=== PATIENT | male | born 1945 | race Caucasian/White ===

== ENCOUNTER 2022-08-16 18:13 | Inpatient (IN) | payer MEDICAID ==
[~2022-08-16] VITALS: Ht 177.8 cm; Wt 106.7 kg
[2022-08-16 19:01] LABS: BASOPHILS % 0.8 % (0.0-2.0); EOSINOPHILS % 0.7 % (0.0-5.0); HEMATOCRIT. 36.5 % (42.0-52.0); HEMOGLOBIN. 12.1 g/dL (14.0-18.0); LYMPHOCYTES % 50.2 % (20.0-50.0); MEAN CORPUSCULAR HEMOGLOBIN 28.7 pg (28.0-32.0); MEAN CORPUSCULAR VOLUME 86.8 fL (80.0-94.0); MEAN PLATELET VOLUME 8.9 fl (7.4-10.4); MONOCYTES % 7.6 % (2.0-8.0); NEUTROPHILS % 40.7 % (40.0-76.0); PLATELET 151 x1000/uL (130-400); RED BLOOD CELL COUNT 4.21 mill/uL (4.7-6.1); RED CELL DISTRIBUTION WIDTH 17.6 % (11.6-14.6)
[2022-08-16 19:06] LABS: CHLORIDE 108 mEq/L (98-107)
[2022-08-16 19:24] LABS: CLARITY URINE CLEAR (CLEAR); COLOR URINE YELLOW (YELLOW); KETONES URINE TRACE (NEGATIVE); LEUKOCYTE ESTERASE URINE NEGATIVE (NEGATIVE); NITRITE URINE NEGATIVE (NEGATIVE); OCCULT BLOOD URINE NEGATIVE (NEGATIVE); PH URINE 5.5 (4.5-8.0); PROTEIN URINE 1+ (NEGATIVE); SPECIFIC GRAVITY URINE 1.029 (1.005-1.030)
[2022-08-16 19:35] LABS: ETHANOL BLOOD 328 mg/dL
[2022-08-16 19:51] LABS: *AMPHETAMINES SCREEN URINE NEGATIVE (NEGATIVE); *BARBITURATES SCREEN URINE NEGATIVE (NEGATIVE); *BENZODIAZEPINES SCREEN URINE NEGATIVE (NEGATIVE); *COCAINE SCREEN URINE NEGATIVE (NEGATIVE); CANNABINOID URINE SCREEN NEGATIVE (NEGATIVE); METHADONE URINE SCREEN NEGATIVE (NEGATIVE); OPIATES URINE SCREEN NEGATIVE (NEGATIVE); PHENCYCLIDINE URINE SCREEN NEGATIVE (NEGATIVE)
[2022-08-17 03:58] VITALS: BP 138/91
[2022-08-17] MEDS ORDERED: NALOXONE HCL 0.4MG/ML VIAL IV PRN (07:00)
[2022-08-17] MEDS ORDERED: ONDANSETRON HCL 4MG/2ML INJ IV PRN (07:00)
[2022-08-17] MEDS ORDERED: HYDROCODONE/ACETAMINOPHEN 5/325MG TABLET PO PRN (07:00)
[2022-08-17] MEDS ORDERED: LORAZEPAM 0.5MG TABLET PO PRN (07:00)
[2022-08-17] MEDS ORDERED: DOCUSATE SODIUM 100MG CAPSULE PO PRN (07:00)
[2022-08-17] MEDS ORDERED: ACETAMINOPHEN 325MG TABLET PO PRN (07:00)
[2022-08-17] MEDS ORDERED: IPRATROPIUM/ALBUTEROL 0.5-3(2.5)MG/3ML NEB HHN PRN (07:00)
[2022-08-17] MEDS ORDERED: CLONIDINE 0.1MG TABLET PO PRN (07:00)
[2022-08-17] MEDS ORDERED: FOLIC ACID 1 MG, THIAMINE HCL 100 MG, MVI, ADULT NO.1 10 ML in DEXTROSE 5% WATER 1,000 ML IV ONE ×4 (09:00)
[2022-08-17 10:32] LABS: BASOPHILS % 0.9 % (0.0-2.0); EOSINOPHILS % 0.8 % (0.0-5.0); HEMATOCRIT. 38.8 % (42.0-52.0); HEMOGLOBIN. 13.1 g/dL (14.0-18.0); LYMPHOCYTES % 31.3 % (20.0-50.0); MEAN CORPUSCULAR HEMOGLOBIN 29.2 pg (28.0-32.0); MEAN CORPUSCULAR VOLUME 86.7 fL (80.0-94.0); MEAN PLATELET VOLUME 9.5 fl (7.4-10.4); MONOCYTES % 5.8 % (2.0-8.0); NEUTROPHILS % 61.2 % (40.0-76.0); PLATELET 172 x1000/uL (130-400); RED BLOOD CELL COUNT 4.48 mill/uL (4.7-6.1); RED CELL DISTRIBUTION WIDTH 18.1 % (11.6-14.6)
[2022-08-17 10:38] LABS: CHLORIDE 107 mEq/L (98-107)
[2022-08-17] MEDS: ACETAMINOPHEN 325MG TABLET PO PRN (11:10)
[2022-08-17 12:00] VITALS: BP 168/96
[2022-08-17] MEDS: METOPROLOL TARTRATE 50MG TABLET PO SCH ×2 (13:02→22:15)
[2022-08-17] MEDS: CHLORDIAZEPOXIDE 25MG CAPSULE PO SCH ×2 (13:25→22:15)
[2022-08-17 16:00] VITALS: BP 150/98
[2022-08-17 18:26] LABS: CREATINE KINASE 125 IU/L (39-308); CREATINE KINASE MB FRACTION 3.5 ng/mL (0.5-3.6); TOTAL IRON BINDING CAPACITY 313 ug/dL (250-450)
[2022-08-17 18:28] LABS: FERRITIN 38 ng/mL (22-322)
[2022-08-17 20:00] VITALS: BP 159/90
[2022-08-17] MEDS ORDERED: ENOXAPARIN 120MG/0.8ML SYR SUBCUT SCH (21:00)
[2022-08-18] VITALS: BP 152/88
[2022-08-18 00:56] LABS: CREATINE KINASE MB FRACTION 3.5 ng/mL (0.5-3.6)
[2022-08-18 04:00] VITALS: BP 145/94
[2022-08-18] MEDS: CHLORDIAZEPOXIDE 25MG CAPSULE PO SCH ×3 (05:55→20:41)
[2022-08-18 06:51] LABS: INR 1.1; PROTHROMBIN TIME 11.5 sec (9.6-11.0)
[2022-08-18 07:04] LABS: CHLORIDE 101 mEq/L (98-107)
[2022-08-18 07:07] LABS: BASOPHILS % 0.7 % (0.0-2.0); EOSINOPHILS % 1.6 % (0.0-5.0); HEMATOCRIT. 38.2 % (42.0-52.0); HEMOGLOBIN. 12.8 g/dL (14.0-18.0); LYMPHOCYTES % 28.4 % (20.0-50.0); MEAN CORPUSCULAR HEMOGLOBIN 29.1 pg (28.0-32.0); MEAN CORPUSCULAR VOLUME 87.2 fL (80.0-94.0); MEAN PLATELET VOLUME 9.5 fl (7.4-10.4); MONOCYTES % 11.2 % (2.0-8.0); NEUTROPHILS % 58.1 % (40.0-76.0); PLATELET 152 x1000/uL (130-400); RED BLOOD CELL COUNT 4.38 mill/uL (4.7-6.1); RED CELL DISTRIBUTION WIDTH 17.9 % (11.6-14.6)
[2022-08-18 07:17] LABS: CREATINE KINASE 119 IU/L (39-308); CREATINE KINASE MB FRACTION 3.5 ng/mL (0.5-3.6)
[2022-08-18 08:00] VITALS: BP 136/94
[2022-08-18] MEDS: METOPROLOL TARTRATE 50MG TABLET PO SCH ×2 (08:49→20:40)
[2022-08-18 12:00] VITALS: BP 145/100
[2022-08-18] MEDS ORDERED: POTASSIUM CHLORIDE 20MEQ TABLET SR PO SCH (12:15)
[2022-08-18] MEDS ORDERED: APIXABAN 5 MG TABLET PO SCH (13:00)
[2022-08-18] MEDS: ENOXAPARIN 120MG/0.8ML SYR SUBCUT SCH ×2 (13:25→23:34)
[2022-08-18] MEDS: TAMSULOSIN HCL 0.4MG SR CAPSULE PO SCH (13:26)
[2022-08-18 16:00] VITALS: BP 121/89
[2022-08-18 20:00] VITALS: BP 146/88
[2022-08-19] VITALS: BP 122/86
[2022-08-19 04:00] VITALS: BP 137/97
[2022-08-19] MEDS: CHLORDIAZEPOXIDE 25MG CAPSULE PO SCH ×3 (06:37→21:03)
[2022-08-19 08:00] VITALS: BP 125/70
[2022-08-19] MEDS: METOPROLOL TARTRATE 50MG TABLET PO SCH ×2 (08:54→20:51)
[2022-08-19] MEDS: TAMSULOSIN HCL 0.4MG SR CAPSULE PO SCH (08:54)
[2022-08-19] MEDS: ENOXAPARIN 120MG/0.8ML SYR SUBCUT SCH (08:55)
[2022-08-19] MEDS: ACETAMINOPHEN 325MG TABLET PO PRN (09:01)
[2022-08-19 12:00] VITALS: BP 125/80
[2022-08-19] MEDS ORDERED: ASPI-1497 MT (14:09)
[2022-08-19] MEDS ORDERED: TAMS-11 PO (14:09)
[2022-08-19] MEDS ORDERED: METO-539 PO (14:09)
[2022-08-19 20:00] VITALS: BP 126/76
[2022-08-20] VITALS: BP 113/54
[2022-08-20 04:00] VITALS: BP 126/76
[2022-08-20] MEDS: CHLORDIAZEPOXIDE 25MG CAPSULE PO SCH (05:10)
[2022-08-20 08:30] VITALS: BP 127/88
[2022-08-20] MEDS: TAMSULOSIN HCL 0.4MG SR CAPSULE PO SCH (08:34)
[2022-08-20] MEDS: METOPROLOL TARTRATE 50MG TABLET PO SCH (08:35)
[2022-08-20 12:00] VITALS: BP 116/76
[2022-08-20 13:37] VITALS: BP 116/76
== END 2022-08-20 14:55 | disposition home or self-care (01) | DRG 44 ==
LOC: ER 18:13 → MICUSO 23:24 → EDBEDREQ 23:25 → EDBEDREQTM 23:25 → 7WST 08-17 03:36
PROVIDERS: ADMIT Internal Medicine; ATTEND Internal Medicine
DX: I62.00 Nontraumatic subdural hemorrhage, unspecified (principal); G92.8 Other toxic encephalopathy; I31.39 Other pericardial effusion (noninflammatory); I34.0 Nonrheumatic mitral (valve) insufficiency; D64.9 Anemia, unspecified; I48.91 Unspecified atrial fibrillation; I10 Essential (primary) hypertension; F10.129 Alcohol abuse with intoxication, unspecified; T51.91XA Toxic effect of unspecified alcohol, accidental (unintentional), initial encounter; Y92.89 Other specified places as the place of occurrence of the external cause; Z59.00 Homelessness unspecified; Z87.828 Personal history of other (healed) physical injury and trauma; Z91.81 History of falling
CPT/HCPCS: 36415; 80048; 80053; 80305; 80320; 81003; 82270; 82550; 82553; 82728; 82746; 83540; 83550; 83735; 84484; 85025; 93005; 93306; 97116; 97162; 99285; J1650; J3411; J3490; J7070; G0480